=== PATIENT | female | born 1995 | race Caucasian/White ===

== ENCOUNTER 2023-09-08 12:28 | Outpatient (AMB) | payer OTHER, SELFPAY ==
[2023-09-08 12:40] VITALS: BP 129/74; PULSE 71; O2SAT 97; BMI 31.5
--- NOTE | 2023-09-08 12:40 | MHC.OFFWIV ---
Intake Vital Signs 09/08/23 12:40 Height 5 ft 9 in Weight 213 lb 6 oz BMI 31.5 BP 129/74 Blood Pressure Location Lt brachial Pulse 71 Pulse Source Pulse Oximeter Pulse Oximetry (%) 97 Oxygen Delivery Method Room Air Intake Visit Reasons: lump in armpit Intake Note: Patient is here with lumps under right arm for 6 weeks, she states the lymphnodes under her chin were swollen, and pain around the elbow, spreading and getting worse. Patient Tobacco Use Status: Never used Tobacco Allergies No Known Allergies Allergy (Verified 09/08/23 12:58) Medication List - Last Reconciled 09/08/23 by Jessica Che, AMADA-LONNY Ledbetter norgest/e.estradiol-e.estrad 0.15 mg-30 mcg (84)/10 mcg (7) 1 tab PO DAILY Do you need a note to return to daycare/school/sports/work: No HPI HPI Comments History of Present Illness Details Here today with complaints lumps under right armpit and chin. 6 weeks ago noticed lumps under R armpit 3 weeks ago noticed swelling under chin w/o assoc URI sx In the past week or so started w/ pain over elbow on R side. Stretching the arm makes the pain worse. 6-8 months of n/v. Not resolved with PPI. This has gotten better. [facility] exam and told not breast related. However an ultrasound of the breast was ordered and is pending Went to ED 2 weeks ago, in [place]. Labs were done - I do not have these results. Told of no infection. NO tx rendered. No imaging done. Denies any constitutional symptoms. Reports that her weight is stable. Denies any overt injury. Does have cats but really does not think that she has been bitten or scratched by a cat prior to the onset of her symptoms. Reports that she is up-to-date on her vaccinations to include tetanus. [facility] Social History Patient Tobacco Use Status: Never used Tobacco Review of Systems Const All systems reviewed & are unremarkable except as noted in HPI and below Physical Exam Vital Signs: Last Vital Signs Pulse 71 09/08/23 12:40 BP 129/74 09/08/23 12:40 Pulse Ox 97 09/08/23 12:40 Oxygen Delivery Method Room Air 09/08/23 12:40 BMI result Body Mass Index 31.5 Const Other: Awake alert oriented accompanied by significant other Amparo Right arm full range of motion, neurovascularly intact, firm irregular shaped area palpable in the center of the axilla on the right side. Patient does report mild pain with deep palpation. The overlying skin is intact. There are no other palpable lymph nodes in the axilla or the upper arm. A breast exam was not performed today as she just [facility]. She also reports that she does not have any breast concerns. Pharynx is clear Does have shotty adenopathy anterior cervical and posterior cervical bilat as well as submandibular Assessment & Plan Assessment & Plan (1) Lymphadenitis: Code(s): I88.9 - Nonspecific lymphadenitis, unspecified Plan: Plan will be to check an ultrasound of the soft tissue head and neck as well as soft tissue of the right axilla to look at the lymphadenopathy. I did ask for the labs from the [place] emergency room and a workup to be sent to me for review. She should follow-up with the breast center for imaging of right breast that was ordered and follow any plan of care given to her by them. Discussed that this could be something like cat scratch fever, lymphadenitis. I have asked for her to get labs done today and I will follow up with the results. Plan Total time spent caring for the patient today was 45 minutes. This includes time spent before the visit reviewing the chart, time spent during the visit, and time spent after the visit on documentation This note is constructed using voice recognition software. While every effort has been made to ensure accuracy in gas appliance servicer, still errors may have been included Sometimes, these errors may affect the content or meaning of the given sentence . Orders: Orders US soft tiss head and/or neck Today I88.9 - Nonspecific lymphadenitis, unspecified Complete Blood Count no Diff Today I88.9 - Nonspecific lymphadenitis, unspecified CRP High Sensitivity Today I88.9 - Nonspecific lymphadenitis, unspecified US extremity nonvascular Today I88.9 - Nonspecific lymphadenitis, unspecified Streptolysin O Antibody Today I88.9 - Nonspecific lymphadenitis, unspecified Erythrocyte Sedimentation Rate Today I88.9 - Nonspecific lymphadenitis, unspecified Coding Level of Care Code New Pt Level 4 (80055) Diagnoses Lymphadenitis I88.9
== END 2023-09-08 14:17 | disposition home or self-care (01) ==
PROVIDERS: Visit Provider Nurse Practitioner Family
DX: I88.9 Nonspecific lymphadenitis, unspecified (principal)
CPT/HCPCS: 99204

== ENCOUNTER 2023-09-10 15:24 | Outpatient (REF) | payer OTHER, SELFPAY ==
--- NOTE | ~2023-09-10 | US_ITS ---
EXAMINATION: US EXTREMITY, NONVASCULAR CLINICAL INFORMATION: Right axillary lymph nodes COMPARISON: None available. TECHNIQUE: Limited ultrasound imaging to the right axilla is performed. FINDINGS: Limited imaging through the right axillary veins a complex fluid collection with linear echogenic area within but avascular. It measures 1.0 x 0.3 x 0.7 cm. It is US/US extremity nonvascular IMPRESSION: Small complex fluid collection right axilla. Question dermal/sebaceous cyst.
== END 2023-09-10 15:25 | disposition home or self-care (01) ==
LOC: HO.US 15:24
PROVIDERS: PCP Nurse Practitioner Family; Visit Provider Nurse Practitioner Family
DX: I88.9 Nonspecific lymphadenitis, unspecified (principal)
CPT/HCPCS: 76882

== ENCOUNTER 2023-09-21 09:45 | Outpatient (REF) | payer OTHER, SELFPAY ==
[2023-09-21 11:40] LABS: Hematocrit 44.6 %; Mean Corpuscular HGB Conc 31.4 g/dl; Mean Corpuscular Hemoglobin 26.7 pg; Mean Corpuscular Volume 85.1 fL; Mean Platelet Volume 10.8 fL (9.4-12.4); Platelet Count 283 X10*3/uL; Red Blood Count 5.24 X10*6/uL; Red Cell Distribution Width 12.9 % (11.0-16.0); White Blood Count 6.8 X10*3/uL
[2023-09-21 13:25] LABS: Erythrocyte Sedimentation Rate 9 MM/HR
[2023-09-22 14:43] LABS: Streptolysin O Antibody <50 IU/mL (<200)
[2023-09-22 22:24] LABS: CRP High Sensitivity 6.8 mg/L
== END 2023-09-21 09:46 | disposition home or self-care (01) ==
LOC: HO.WFDLDS 09:45
PROVIDERS: Visit Provider Nurse Practitioner Family
DX: I88.9 Nonspecific lymphadenitis, unspecified (principal)
CPT/HCPCS: 36415; 85027; 85652; 86060; 86141

== ENCOUNTER 2023-09-27 12:30 | Outpatient (AMB) | payer OTHER, SELFPAY ==
--- NOTE | 2023-09-27 12:43 | A.OFFPC_ITS ---
Vital Signs 09/27/23 12:44 Height 5 ft 9 in Weight 214 lb BMI 31.6 BP 134/63 Blood Pressure Location Rt brachial Position Sitting Respiration 13 Pulse 81 Pulse Source Pulse Oximeter Temp 98.8 F Temp Source Temporal Artery Scan Pulse Oximetry (%) 97 Oxygen Delivery Method Room Air Intake Visit Reasons: est care / lab result post wi visit Intake Note: Patients is here to establish care and discuss the lab results post WI visit. Butcher Assistant Required: No Allergies No Known Allergies Allergy (Verified 09/27/23 12:49) Medication List - Last Reconciled 09/27/23 by AMADA Lewis-LONNY Ledbetter norgest/e.estradiol-e.estrad 0.15 mg-30 mcg (84)/10 mcg (7) 1 tab PO DAILY Tobacco use date assessed: 09/27/23 Dental Screening Dental Screen Date: 09/27/23 Did you have a dental visit in the last 12 months?: Yes Did you have a dental problem in the last 6 months where you did not have access to dental care?: No Was dental information given to patient?: Patient has dentist HPI HPI Comments History of Present Illness Details 28-year-old female here today to follow up on lumps noted under her right armpit and chin more than 8 weeks ago. Ultrasound soft tissue head and neck performed Outside provider performed right breast imaging. The ultrasound done September 10 showed right axillary veins with complex fluid collection with linear echogenic area, avascular. Measures 1 X 0.3 X 0.7 cm. Impression small complex fluid collection of the right axilla likely dermal/sebaceous cysts. Labs performed 09/21/2023 shows a normal CBC, normal ESR, elevated C-reactive protein 6.8, negative anti streptolysine. Very vague historian, often looking at partner before answering. Partner answers a lot of the questions. She seems unsure. Poor eye contact. Be that as it may, she thinks the lumps are better. Labs from 08/2023 from [place] reviewed today. ASked to have scanned into chart. Did not get breast imaging done - reports its was cancelled. Did not try the recommended treatment at the last visit. There was a swollen vein like area R axilla 1 week ago, they pushed it and it popped back in. No further issues. Reviewed labs and imaging w/ her and partner today. In addition, would like to discuss TONY. I do not any previous medical records therefore I am going the history provided to me today by the patient. She is very guarded and not forthcoming with her history. Be that as it may she reports that she has a longstanding history of GERD and MDD. Most recently she was on Prozac 20 mg. She stopped taking this during COVID as she was not able to follow up with her care team during the quarantine. Reports that she felt pretty good on this medication. Did try sertraline in the past but this caused GI upset Not active with a counselor. Reports having a hard time meshing with a counselor and has had that experiences and therefore declines any further refe rrals for counseling. When asked about suicidal ideation or attempts once again very hesitant to answer. Reports self cutting in the past to feel grounded. But no longer cutting. Admits to passive suicidal thoughts without a plan. When asked if she had the crisis number reports she can Google it. Would like to restart Prozac if at all possible Denies bipolar or polysubstance abuse. Also reports burning with urination only during her menstrual periods. She has not up-to-date with her Women's Health. She is currently on control. Needs a refill. This will be sent today. We will refer to certified surgical technician. Was recently seen in [place] and she would like to continue there. Referral will be placed today. [facility] Medical History (Updated 09/27/23 @ 15:18 by Jessica Che [facility]) Depression Anxiety GERD (gastroesophageal reflux disease) Surgical History (Updated 09/27/23 @ 13:24 by Stephanie Cancino CMA) No pertinent past surgical history Family History (Updated 09/27/23 @ 13:29 by Stephanie Cancino CMA) Mother Hypertension Cardiovascular disease Father Pancreatic cancer Maternal Grandfather Cardiovascular disease Paternal Grandfather Alcoholism Social History (Updated 09/27/23 @ 12:52 by Stephanie Cancino CMA) Household Members: Significant Other Both parents involved: No Housing: House 75 years or older and lives alone: No Alcohol intake: current Alcohol intake frequency: holidays/special occasions only Patient Tobacco Use Status: Never used Tobacco e-Cigarette/Vaping Use: Never Used service: No Current occupational status: employed 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 1. Little interest or pleasure in doing things: more than half the days 2. Feeling down, depressed, or hopeless: more than half the days 3. Trouble falling or staying asleep, or sleeping too much: several days 4. Feeling tired or having little energy: nearly every day 5. Poor appetite or overeating: several days 6. Feeling bad about yourself - or that you are a failure or have let yourself or your family down: several days 7. Trouble concentrating on things, such as reading the newspaper or watching television: nearly every day 8. Moving or speaking so slowly that other people could have noticed. Or the opposite - being so fidgety or restless that you have been moving around a lot more than usual: several days 9. Thoughts that you would be better off or of hurting yourself in some way: more than half the days Total score: 16 Depression Screening Interpretation: Positive Depression Screening Follow-up: Existing condition and New Medication prescribed Depression Screening Done: Yes 88200 - PHQ-9 Billing: Yes Source: Developed by Drs. Fitz Serrato, Barbara Becerril, Al Bonner and colleagues, with an educational ирина from [employer]. Thrive Questionnaire Date Thrive assessed: 09/27/23 I am a: Patient What is your living situation today?: I have a steady place to live Within the past 12 months, did the food you bought not last and you didn't have the money to get more?: Never true Within the past 12 months, did you worry whether your food would run out before you got money to buy more?: Never true Do you have trouble paying for medicines?: No Do you have trouble getting transportation to medical appointments?: No Do you have trouble paying your heating and electricity bill?: Yes Do you have trouble taking care of your child, family member or friend?: No Do you have trouble with day-to-day activities such as bathing, preparing meals, shopping, managing finances, etc.?: No Are you interested in more education?: No Please select the resources that you would like help with: Utilities Currently or been in a relationship where the following occur: no concerns reported THRIVE Score: 1 AUDIT C Alcohol Use Questionnaire (AUDIT-C) 1. How often do you have a drink containing alcohol?: 2-4 times a month 2. How many drinks containing alcohol do you have on a typical day when you are drinking?: 1 or 2 3. How often do you have six or more drinks on one occasion?: Never Total Score: 2 TONY-7 AMB Questionnaire TONY-7 Date TONY - 7 assessed: 09/27/23 Feeling nervous, anxious, or on edge: 2 = More than half the days Not being able to stop or control worryin = More than half the days Worrying too much about different things: 3 = Nearly every day Trouble relaxin = More than half the days Being so restless that it is hard to sit still: 1 = Several days Becoming easily annoyed or irritable: 2 = More than half the days Feeling afraid as if something awful might happen: 1 = Several days Total TONY-7 score (0-4 normal; 5-9 mild; 10-14 moderate; 15-21 severe): 13 Source: Developed by Drs. Fitz Serrato, Barbara Becerril, Al Bonner and colleagues, with an educational ирина from [employer]. TONY-7 Assessment Billing TONY-7 Assessment Tool: TONY-7 Assessment 80916 Review of Systems Const All systems reviewed & are unremarkable except as noted in HPI and below Physical exam (Primary Care) Vital Signs: Last Vital Signs Temp 98.8 F 09/27/23 12:44 Pulse 81 09/27/23 12:44 Resp 13 09/27/23 12:44 BP 134/63 09/27/23 12:44 Pulse Ox 97 09/27/23 12:44 Oxygen Delivery Method Room Air 09/27/23 12:44 BMI result Body Mass Index 31.6 BMI Assessment/Plan discussion: High BMI High, discussed plan: lifestyle Tobacco/Smoking Status: Tobacco use Status Tobacco use date assessed 09/27/23 09/27/23 12:50 Patient Tobacco Use Status Never used Tobacco 09/27/23 12:52 e-Cigarette/Vaping Use Never Used 09/27/23 12:52 PHQ-9: PHQ-9 Score PHQ-9: Total score 16 09/27/23 13:23 Depression Screening Interpretation: Positive Depression Screening Follow-up: Existing condition and New Medication prescribed Thrive Assessment: Date of Thrive Assessment Date Thrive assessed 09/27/23 09/27/23 12:55 Currently or been in a relationship where the following occur: no concerns reported Const Other: Awake alert oriented accompanied by significant other Amparo Right arm full range of motion, neurovascularly intact, previous palpable sebaceous cyst are completely resolved. Pharynx is clear Does have shotty adenopathy anterior cervical on the right only. posterior cervical bilat & submandibular resolved Mood and affect guarded and strange. Poor eye contact. Looks to Amparo before answering any questions. Given the opportunity to have Amparo step about during the exam however patient declined. Assessment and Plan Assessment & Plan (1) Sebaceous cyst of right axilla: Comment: Ultrasound performed September of 2023 confirms this. All of her symptoms have resolved therefore no further treatment is necessary at this time. Did advised that should she develop any recurrence she should immediately start apply warm moist compresses to the area and gently massage Code(s): L72.3 - Sebaceous cyst (2) MDD (major depressive disorder), recurrent episode: Comment: Positive PHQ today. We will restart on Prozac 20 mg 1 tablet p.o. daily. Declined counseling. We will bring her back in 4-6 weeks to evaluate the effectiveness and titrate as appropriate. I will attempt to do an interview with her privately without Amparo present at the next visit to see if her demeanor changes. Code(s): F33.9 - Major depressive disorder, recurrent, unspecified Qualifiers: Major depression episode severity: moderate Qualified Code(s): F33.1 - Major depressive disorder, recurrent, moderate (3) TONY (generalized anxiety disorder): Comment: Positive PHQ today. We will restart on Prozac 20 mg 1 tablet p.o. daily. Declined counseling. We will bring her back in 4-6 weeks to evaluate the effectiveness and titrate as appropriate. I will attempt to do an interview with her privately without Amparo present at the next visit to see if her demeanor changes. Encouraged to reconsider counseling as this will benefit her in the future. Tells me she will think about it. Code(s): F41.1 - Generalized anxiety disorder (4) Routine check-up: Code(s): Z00.00 - Encounter for general adult medical examination without abnormal findings Plan: Refer to Women's Health in [place] for routine gynecological care and follow up on her complaints of dysuria that only occurs during the time of her menses. These symptoms are not present today. Plan Total time spent caring for the patient today was 45 This note is constructed using voice recognition software. While every effort has been made to ensure accuracy in commercial litigation paralegal, still errors may have been included Sometimes, these errors may affect the content or meaning of the given sentence . minutes. This includes time spent before the visit reviewing the chart, time spent during the visit, and time spent after the visit on documentation Orders: Referrals CASE RESOLUTION SPECIALIST Referral Z00.00 - Encounter for general adult medical examination without abnormal findings Medications: New fluoxetine (Prozac) 20 mg PO DAILY 30 caps 1RF L norgest/e.estradiol-e.estrad 0.15 mg-30 mcg (84)/10 mcg (7) 1 tab PO DAILY 182 ea 0RF Patient Instructions: Crisis Hotlines Suicide prevention, domestic violence, and other crisis hotlines for youth, young adults, and their friends and families. [employer]: The [place] Safeline helps youth who have run away, are thinking about running away, or who already ran away but are ready to come home. Parents and guardians can also contact the hotline if they are worried about their child running away or if their child has already left home. The hotline is available 24 hours a day, seven days a week. Youth, parents, and guardians can also use the online chat feature on the [facility] [facility]'s website to ask for help and get support, or [place] [address]. National Runaway Safeline National Suicide Prevention Lifeline: The National Suicide Prevention Lifeline is a network of local crisis centers that are available 22/02 to provide support for youth and adults who are in any kind of emotional crisis. In addition to the main hotline number listed above, there are several other numbers to call depending on your needs: Citizen Of [place] Language: Deaf and Hard of [phone] Veterans: Disaster Distress: Anyone can also use their online chat feature on their website. National Suicide Prevention Lifeline [facility]: The [facility] is available to anyone in [place] who is need of emotional support. Anyone can call or text the helpline to receive help from specially trained volunteers. [place] high school and college students can also get online support through the IMH[employer]_ program. For high school students, volunteers ages 15-18 are available Wednesday- from 6-9PM. For college students, [employer]_ is available Wednesday-Wednesday from 5-9PM. The Alexei Project - The Alexei Project is a 22/02 crisis intervention and suicide prevention hotline for LGBTQ youth. Youth can also text Alexei to for support, or use the online chat feature on the Alexei Project's website. [employer] is available Wednesday-Wednesday between 3-10PM. [employer] is available seven days a week between 3-10PM. SafeLink: SafeLink is for anyone who is being affected by domestic violence or dating violence. Volunteers at [employer] speak Martiniquais and Citizen Of [place], and [employer] also has a service that can provide translation in more than 130 languages. TTY: Coding Level of Care Code Est Pt Level 5 (87167) Diagnoses Sebaceous cyst of right axilla L72.3 Moderate episode of recurrent major depressive disorder F33.1 Major depression episode severity: moderate TONY (generalized anxiety disorder) F41.1 Routine check-up Z00.00 Additional Codes TONY-7 Assessment Billing - TONY-7 Assessment Tool: TONY-7 Assessment 50820 ([id number])
[2023-09-27 12:44] VITALS: BP 134/63; PULSE 81; RESP 13; TEMP 37.1; O2SAT 97; BMI 31.6
== END 2023-09-27 13:24 | disposition home or self-care (01) ==
LOC: HO.HMGFM 12:31
PROVIDERS: PCP Nurse Practitioner Family; Visit Provider Nurse Practitioner Family
DX: L72.3 Sebaceous cyst (principal); F33.1 Major depressive disorder, recurrent, moderate; F41.1 Generalized anxiety disorder; Z00.00 Encounter for general adult medical examination without abnormal findings
CPT/HCPCS: 96127; 99215

== ENCOUNTER 2024-01-27 11:50 | Outpatient (AMB) | payer OTHER, SELFPAY ==
--- NOTE | 2024-01-27 11:47 | MHC.PC.OV ---
Intake Visit Reasons: [facility] Supervisor Required: No Allergies No Known Allergies Allergy (Verified 01/27/24 11:48) Medication List - Last Reconciled 01/27/24 by MAX Lewis fluoxetine (Prozac) 20 mg PO DAILY L norgest/e.estradiol-e.estrad 0.15 mg-30 mcg (84)/10 mcg (7) 1 tab PO DAILY Tobacco use date assessed: 09/27/23 Dental Screening Dental Screen Date: 09/27/23 HPI HPI Comments History of Present Illness Details Telehealth visit today to fu on TONY and MDD Since last visit thinks prozac has been helping , when asked to further explain: when not on it feels stressed about things, cries every day about silly things [too many dishes and stuff like that]; when taking has allowed for clearer thinking taking in the morning Wonders about increasing discussed counseling again, at last visit declined, today reports warming up to the idea and would like to be referred today. Lives in [place] so tele is preferred I reviewed my note from last visit 09/2023 I sent 60 days of prozac 20mg in September When asked if she has been w/o given the timing of todays first f/u appt since then (was supposed to see me in 6 weeks) reports she lost it for a while Was taking for like 6 weeks or so and then lost the bottle Restarted it about 2 weeks ago Plan: refer to counseling @ [facility] increase prozac from 20mg QD to 30mg QD FU in 6 weeks tele or in person, sooner PRN [facility] Medical History (Updated 01/27/24 @ 12:37 by MAX Lewis) Depression Anxiety GERD (gastroesophageal reflux disease) Surgical History (Updated 09/27/23 @ 13:24 by Stephanie Cancino CMA) No pertinent past surgical history Family History (Updated 09/27/23 @ 13:29 by Stephanie Cancino CMA) Mother Hypertension Cardiovascular disease Father Pancreatic cancer Maternal Grandfather Cardiovascular disease Paternal Grandfather Alcoholism Social History (Updated 09/27/23 @ 12:52 by Stephanie Cancino CMA) Household Members: Significant Other Both parents involved: No Housing: House 75 years or older and lives alone: No Alcohol intake: current Alcohol intake frequency: holidays/special occasions only Patient Tobacco Use Status: Never used Tobacco e-Cigarette/Vaping Use: Never Used service: No Current occupational status: employed 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 Fitz Serrato, Barbara Becerril, Al Bonner and colleagues, with an educational ирина from [employer]. Physical exam (Primary Care) Tobacco/Smoking Status: Tobacco use Status Tobacco use date assessed 09/27/23 01/27/24 11:49 Patient Tobacco Use Status Never used Tobacco 01/27/24 11:49 e-Cigarette/Vaping Use Never Used 01/27/24 11:49 Thrive Assessment: Date of Thrive Assessment Date Thrive assessed 09/27/23 01/27/24 11:49 Telehealth Telehealth Telehealth Platform: Telephone Location of provider rendering services: practice address Location of patient: address on file Patient Identification confirmed using: Name, : Yes Telehealth method: voice only Patient verbally consented to treatment: Yes Patient verbally consented to billing insurance company: Yes Patient informed of any privacy concerns related to visit: Yes Minutes spent on Phone/Video with Pt.: 11 Assessment and Plan Assessment & Plan (1) MDD (major depressive disorder), recurrent episode: Code(s): F33.9 - Major depressive disorder, recurrent, unspecified Qualifiers: Major depression episode severity: moderate Qualified Code(s): F33.1 - Major depressive disorder, recurrent, moderate (2) TONY (generalized anxiety disorder): Code(s): F41.1 - Generalized anxiety disorder Orders: Referrals Counseling Referral F33.1 - Major depressive disorder, recurrent, moderate, F41.1 - Generalized anxiety disorder Medications: New fluoxetine (Prozac) take with 20mg tab to make 30mg total dose 10 mg PO DAILY 30 caps 1RF Refilled fluoxetine (Prozac) 20 mg PO DAILY 30 caps 1RF Coding Level of Care Code Tele Est Pt Level 2 (79862) Diagnoses Moderate episode of recurrent major depressive disorder F33.1 Major depression episode severity: moderate TONY (generalized anxiety disorder) F41.1
== END 2024-01-27 12:38 | disposition home or self-care (01) ==
LOC: HO.HMGFM 11:50
PROVIDERS: PCP Nurse Practitioner Family; Visit Provider Nurse Practitioner Family
DX: F33.1 Major depressive disorder, recurrent, moderate (principal); F41.1 Generalized anxiety disorder
CPT/HCPCS: 99212

== ENCOUNTER 2024-02-09 10:42 | Outpatient (AMB) | payer OTHER, SELFPAY ==
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
[2024-02-09 10:49] VITALS: BP 124/78; PULSE 77; RESP 16; TEMP 36.5; O2SAT 98
== END 2024-02-09 11:43 | disposition home or self-care (01) ==
LOC: HO.HMGFM 10:42
PROVIDERS: PCP Nurse Practitioner Family; Visit Provider Nurse Practitioner Family
DX: Z09 Encounter for follow-up examination after completed treatment for conditions other than malignant neoplasm (principal); S86.911D Strain of unspecified muscle(s) and tendon(s) at lower leg level, right leg, subsequent encounter
CPT/HCPCS: 99214; G2211

== ENCOUNTER 2024-02-14 09:41 | Outpatient (REF) | payer OTHER, SELFPAY ==
--- NOTE | ~2024-02-14 | XR_ITS ---
EXAMINATION: XR KNEE, RIGHT CLINICAL INFORMATION: Primary osteoarthritis right knee. COMPARISON: None available. TECHNIQUE: AP standing view of bilateral knees as well as sunrise and lateral views of the right knee. FINDINGS: Right Knee: Moderate joint effusion. Mild narrowing of the medial compartment with tiny medial marginal osteophytes. AP standing view of the left knee demonstrates mild narrowing of the medial compartment with tiny medial marginal osteophytes. XR/XR knee RT 3V IMPRESSION: Moderate right knee joint effusion. Mild degenerative changes.
== END 2024-02-14 09:42 | disposition home or self-care (01) ==
LOC: HO.HOSX 09:41
PROVIDERS: Visit Provider Physician Assistant
DX: S83.104A Unspecified dislocation of right knee, initial encounter (principal)
CPT/HCPCS: 73562; 99202

== ENCOUNTER 2024-02-14 11:00 | Outpatient (AMB) | payer OTHER, SELFPAY ==
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
[2024-02-14 11:13] VITALS: BMI 31.6
== END 2024-02-14 12:05 | disposition home or self-care (01) ==
LOC: HO.HOS 11:00
PROVIDERS: PCP Nurse Practitioner Family; Visit Provider Physician Assistant
DX: S83.104A Unspecified dislocation of right knee, initial encounter (principal)
CPT/HCPCS: 99203

== ENCOUNTER 2024-02-29 10:00 | Outpatient (RCR) | payer OTHER, SELFPAY ==
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
== END 2024-03-14 15:22 | disposition home or self-care (01) ==
LOC: HO.PT 10:00
PROVIDERS: PCP Nurse Practitioner Family; Visit Provider Physician Assistant
DX: S83.104D Unspecified dislocation of right knee, subsequent encounter (principal)
CPT/HCPCS: 97110; 97162; 97530